=== PATIENT | female | born 1975 | race Hispanic/Latino ===

== ENCOUNTER → 2021-03-26 | Day surgery (SDC) | payer OTHER ==
[~2021-03-26] MED LIST: ATORVASTATIN CA10 MG PO; DEXAMETHASONE SOD PHOS INJ 4 MG/ML VIAL ONE; EPHEDRINE SULFATE INJ 50 MG/ML VIAL ONE; FENTANYL CITRATE/PF 100MCG/2 ML INJ ONE; IOPAMIDOL 300MG/ML 50ML INFUS..BTL IV ONE; LEVOFLOXACIN 500MG/D5W 100ML 100 ML IV ONE; LIDOCAINE HCL 2% LOCAL INJ 5 ML SDV VIAL INJ ONE; LISINOPRIL10 MG PO; METHOTREXATE2.5 MG PO; MIDAZOLAM HCL 2 MG/2 ML VIAL ONE; ONDANSETRON HCL INJ 2MG/ML 2ML 2 MG/ML VIAL ONE; POVIDONE IODINE 0.05% 0.05 % ML PO ONE; PREDNISONE5 MG PO; PROPOFOL IV EMULSION 10 MG/ML 20 ML VIAL ONE; SEVOFLURANE INHAL SOLN 250 ML PEN BTL ONE
[2021-03-26 13:22] VITALS: BP 104/65
== END | disposition home or self-care (01) ==
LOC: OR 09:18
PROVIDERS: ATTEND Urology
DX: N20.1 Calculus of ureter (principal); N20.0 Calculus of kidney; Z46.6 Encounter for fitting and adjustment of urinary device; N39.0 Urinary tract infection, site not specified; N13.30 Unspecified hydronephrosis; E66.01 Morbid (severe) obesity due to excess calories; Z88.1 Allergy status to other antibiotic agents; Z88.0 Allergy status to penicillin; Z01.810 Encounter for preprocedural cardiovascular examination; Z01.818 Encounter for other preprocedural examination; Z68.42 Body mass index [BMI] 45.0-49.9, adult; Z80.52 Family history of malignant neoplasm of bladder; Z84.1 Family history of disorders of kidney and ureter
CPT/HCPCS: 50590; 52315; 74018; 81025 ×2; 93005; C1758; C1769; J1100; J1956; J2001; J2405; J2704; Q9967; J2250; J3010

== ENCOUNTER → 2024-11-06 | Day surgery (SDC) | payer OTHER ==
[2024-11-04 15:24] LABS: BASOPHILS % 0.4 % (0.0-1.0); EOSINOPHILS # (AUTO) 0.3 (0.0-0.4); EOSINOPHILS % 3.9 % (0.0-6.0); HEMATOCRIT 33.9 % (34.2-44.1); HEMOGLOBIN 10.4 g/dL (12.0-16.0); LYMPHOCYTES # (AUTO) 1.7 (1.0-3.2); LYMPHOCYTES % 23.8 % (18.0-39.1); MEAN CORPUSCULAR HEMOGLOBIN 29.7 pg (28-32); MEAN CORPUSCULAR HGB CONC 30.7 g/dL (31-35); MEAN CORPUSCULAR VOLUME 96.9 fL (81-99); MONOCYTES # (AUTO) 0.5 (0.2-0.8); MONOCYTES % 6.6 % (4.4-11.3); NEUTROPHILS # (AUTO) 4.7 (2.1-6.9); PLATELET COUNT 269 x10e3/uL (140-360); RED CELL DISTRIBUTION WIDTH 13.8 % (11.7-14.4); WHITE BLOOD COUNT 7.15 x10e3/uL (4.8-10.8)
[2024-11-04 15:42] LABS: INR 0.96; PROTHROMBIN TIME 13.4 seconds (11.9-14.5)
[2024-11-04 15:43] LABS: PARTIAL THROMBOPLASTIN TIME 32.6 seconds (23.8-35.5)
[2024-11-04 15:49] LABS: CALCIUM 9.4 mg/dL (8.4-10.2); CREATININE, SERUM 2.03 mg/dL (0.57-1.11)
[~2024-11-06] MED LIST changes: +AMLODIPINE BESYL5 MG PO; +ARAVA20 MG PO; +DEXAMETHASONE SOD PHOS INJ 4 MG/ML SDV ONE; -DEXAMETHASONE SOD PHOS INJ 4 MG/ML VIAL ONE; +ENBREL25 MG/0.5 IM; +FLOMAX0.4 MG PO; -IOPAMIDOL 300MG/ML 50ML INFUS..BTL IV ONE; -LEVOFLOXACIN 500MG/D5W 100ML 100 ML IV ONE; +LIDOCAINE HCL 2% LOCAL 20 ML VIAL ONE; +LINZESS145 MCG PO; +LYRICA75 MG PO; +NITROFURANTOIN100 MG PO; +OMEPRAZOLE40 MG PO; +PLAQUENIL200 MG PO; -POVIDONE IODINE 0.05% 0.05 % ML PO ONE; +ROCURONIUM BROMIDE 1 ML IV ONE
[2024-11-06] MEDS: GENTAMICIN 80MG/NS 100 ML 100 ML IV ONE (05:42)
[2024-11-06] MEDS: LACTATED RINGER'S 1,000 ML ONE (05:42)
[2024-11-06 08:40] VITALS: BP 133/74; PULSE 78; RESP 16; O2SAT 96
== END | disposition home or self-care (01) ==
LOC: OR 05:20
PROVIDERS: ATTEND Urology
DX: N20.0 Calculus of kidney (principal); K59.00 Constipation, unspecified; R35.1 Nocturia; R39.14 Feeling of incomplete bladder emptying; N28.1 Cyst of kidney, acquired; N13.30 Unspecified hydronephrosis; N39.0 Urinary tract infection, site not specified; I12.9 Hypertensive chronic kidney disease with stage 1 through stage 4 chronic kidney disease, or unspecified chronic kidney disease; N18.30 Chronic kidney disease, stage 3 unspecified; E66.01 Morbid (severe) obesity due to excess calories; R06.83 Snoring; E78.5 Hyperlipidemia, unspecified; K21.9 Gastro-esophageal reflux disease without esophagitis; Z88.1 Allergy status to other antibiotic agents; Z01.810 Encounter for preprocedural cardiovascular examination; Z01.812 Encounter for preprocedural laboratory examination; Z01.818 Encounter for other preprocedural examination; Z79.899 Other long term (current) drug therapy; Z68.42 Body mass index [BMI] 45.0-49.9, adult; Z80.52 Family history of malignant neoplasm of bladder; Z84.1 Family history of disorders of kidney and ureter
CPT/HCPCS: 36415; 50590; 74018; 80048; 85025; 85610; 85730; 93005; C1758; J1100; J1580; J2003; J2405; J2704; J3010; J7121; J2250

== ENCOUNTER → 2025-04-25 | Day surgery (SDC) | payer OTHER ==
[2025-04-24 10:33] LABS: BASOPHILS % 0.4 % (0.0-1.0); EOSINOPHILS % 2.0 % (0.0-6.0); LYMPHOCYTES % 21.8 % (18.0-39.1); MONOCYTES % 7.1 % (4.4-11.3); NEUTROPHILS % 68.5 % (38.7-80.0); RED CELL DISTRIBUTION WIDTH 12.6 % (11.7-14.4)
[2025-04-24 10:48] LABS: INR 0.87
[2025-04-24 10:56] LABS: EST GLOMERULAR FILTRATION RATE 26.0 ML/MIN (>=60)
[~2025-04-25] MED LIST changes: -EPHEDRINE SULFATE INJ 50 MG/ML VIAL ONE; +GENTAMICIN 80MG/NS 100 ML 100 ML IV ONE; +KETOROLAC TROMETHAMINE 30 MG/ML VIAL ONE; -LIDOCAINE HCL 2% LOCAL 20 ML VIAL ONE; -ROCURONIUM BROMIDE 1 ML IV ONE
[2025-04-25] MEDS: LACTATED RINGER'S 1,000 ML ONE (06:45)
[2025-04-25 09:30] VITALS: BP 139/78; PULSE 56; RESP 18; O2SAT 97
== END | disposition home or self-care (01) ==
LOC: OR 06:03
PROVIDERS: ATTEND Urology
DX: N13.5 Crossing vessel and stricture of ureter without hydronephrosis (principal); Z46.6 Encounter for fitting and adjustment of urinary device; N28.1 Cyst of kidney, acquired; R35.1 Nocturia; I10 Essential (primary) hypertension; E78.5 Hyperlipidemia, unspecified; K21.9 Gastro-esophageal reflux disease without esophagitis; E66.01 Morbid (severe) obesity due to excess calories; Z68.42 Body mass index [BMI] 45.0-49.9, adult; Z87.442 Personal history of urinary calculi; Z80.52 Family history of malignant neoplasm of bladder; Z79.899 Other long term (current) drug therapy; Z88.1 Allergy status to other antibiotic agents; Z79.631 Long term (current) use of antimetabolite agent; Z79.620 Long term (current) use of immunosuppressive biologic; Z01.810 Encounter for preprocedural cardiovascular examination; Z01.812 Encounter for preprocedural laboratory examination
CPT/HCPCS: 36415; 52005; 74018; 74420; 80048; 85025; 85610; 85730; 93005; C1758 ×2; C1769; J1100; J1580; J1885; J2003; J2250; J2405; J2704; J3010; J7121